=== PATIENT | male | born 1960 | race Caucasian/White ===

== ENCOUNTER → 2021-09-09 | Outpatient (CLI) | payer OTHER, MEDICAID ==
[~2021-09-09] MED LIST: BACLOFEN 10MG T10 MG PO; BENICAR 5 MG5 M1 PO; COZAAR 25 MG TA25 MG PO; MELOXICAM15 MG PO; PERCOCET 5-3251 EACH PO; SIMVASTATIN80 MG PO; ZOCOR 10 MG TAB10 MG PO
== END ==
LOC: M.PC 08:57
PROVIDERS: ATTEND Physical Medicine & Rehabilitation
DX: M51.26 Other intervertebral disc displacement, lumbar region (principal); M51.27 Other intervertebral disc displacement, lumbosacral region; M48.061 Spinal stenosis, lumbar region without neurogenic claudication; M48.07 Spinal stenosis, lumbosacral region; M79.605 Pain in left leg; M79.651 Pain in right thigh; I10 Essential (primary) hypertension

== ENCOUNTER → 2021-09-25 | Outpatient (CLI) | payer OTHER, MEDICAID | LOC: M.PC 09:50 | PROVIDERS: ATTEND Physical Medicine & Rehabilitation | DX: M47.816 Spondylosis without myelopathy or radiculopathy, lumbar region (principal); M47.817 Spondylosis without myelopathy or radiculopathy, lumbosacral region; M48.061 Spinal stenosis, lumbar region without neurogenic claudication; M48.07 Spinal stenosis, lumbosacral region; M79.651 Pain in right thigh; M79.605 Pain in left leg; M54.2 Cervicalgia; M79.602 Pain in left arm ==

== ENCOUNTER → 2021-10-21 | Outpatient (CLI) | payer OTHER, MEDICAID ==
[~2021-10-21] MED LIST changes: +ROXICODONE5 M2 PO
== END ==
LOC: M.PC 09:00
PROVIDERS: ATTEND Physical Medicine & Rehabilitation
DX: M51.26 Other intervertebral disc displacement, lumbar region (principal); M48.061 Spinal stenosis, lumbar region without neurogenic claudication; M51.27 Other intervertebral disc displacement, lumbosacral region; M48.07 Spinal stenosis, lumbosacral region; M79.651 Pain in right thigh; M79.605 Pain in left leg; M79.602 Pain in left arm; M79.669 Pain in unspecified lower leg; M96.1 Postlaminectomy syndrome, not elsewhere classified

== ENCOUNTER → 2021-10-28 | Outpatient (CLI) | payer OTHER, MEDICAID | END | disposition home or self-care (01) | LOC: M.PC 09:40 | PROVIDERS: ATTEND Physical Medicine & Rehabilitation | DX: M51.16 Intervertebral disc disorders with radiculopathy, lumbar region (principal); G89.29 Other chronic pain; M48.061 Spinal stenosis, lumbar region without neurogenic claudication; M54.59 Other low back pain; M79.605 Pain in left leg; I10 Essential (primary) hypertension; Z98.890 Other specified postprocedural states; Z79.899 Other long term (current) drug therapy; Z20.822 Contact with and (suspected) exposure to COVID-19; Z88.8 Allergy status to other drugs, medicaments and biological substances ==

== ENCOUNTER → 2021-11-18 | Outpatient (CLI) | payer OTHER, MEDICAID | LOC: M.PC 09:08 | PROVIDERS: ATTEND Physical Medicine & Rehabilitation | DX: M51.26 Other intervertebral disc displacement, lumbar region (principal); M48.061 Spinal stenosis, lumbar region without neurogenic claudication; M48.07 Spinal stenosis, lumbosacral region; M79.605 Pain in left leg; M79.651 Pain in right thigh; M79.602 Pain in left arm; M54.2 Cervicalgia ==

== ENCOUNTER → 2021-12-18 | Outpatient (CLI) | payer OTHER, MEDICAID | LOC: M.PC 12-11 10:00 | PROVIDERS: ATTEND Physical Medicine & Rehabilitation | DX: M51.36 Other intervertebral disc degeneration, lumbar region (principal); M48.061 Spinal stenosis, lumbar region without neurogenic claudication; M79.605 Pain in left leg; M79.2 Neuralgia and neuritis, unspecified; M54.50 Low back pain, unspecified; M54.2 Cervicalgia; M79.602 Pain in left arm; M79.651 Pain in right thigh; Z79.899 Other long term (current) drug therapy ==

== ENCOUNTER → 2022-01-01 | Outpatient (CLI) | payer OTHER, MEDICAID | LOC: M.PC 09:50 | PROVIDERS: ATTEND Physical Medicine & Rehabilitation | DX: M51.26 Other intervertebral disc displacement, lumbar region (principal); M51.27 Other intervertebral disc displacement, lumbosacral region; M79.18 Myalgia, other site; M79.651 Pain in right thigh; M79.605 Pain in left leg; M54.2 Cervicalgia; M79.602 Pain in left arm ==